=== PATIENT | male | born 1975 | race Caucasian/White ===

== ENCOUNTER 2020-11-30 20:23 | Emergency (ER) | payer OTHER, SELFPAY ==
[2020-11-30 20:24] VITALS: BP 129/78; PULSE 85; RESP 16; TEMP 36.9; O2SAT 98; BMI 22.6
--- NOTE | 2020-11-30 20:59 | ECG_ITS ---
APPROVED REPORT Exam: Resting ECG HR:82 bpm ECG Measurements Heart Rate 82 AXES NJ 172 P 37 QRSd 100 QRS 26 QT 360 T 31 QTc 420 Conclusion Normal sinus rhythm Normal ECG Electronically signed by : Osmar Escoto, 12/01/2020 07:37:31
[2020-11-30 21:00] VITALS: BP 137/70; PULSE 86; RESP 15; O2SAT 97
[2020-11-30 21:04] LABS: Basophils % 0.4 % (0.1-2.0); Eosinophils % 0.4 % (0.1-12.0); Hematocrit 45.7 % (42.0-52.0); Hemoglobin 15.4 g/dL (14.1-18.0); Lymphocytes # 1.5 K/mm3 (0.7-4.5); Lymphocytes % 20.3 % (10-50); Mean Corpuscular HGB Conc 33.8 g/dL (31.8-35.4); Mean Corpuscular Hemoglobin 27.2 pg (27.0-31.2); Mean Corpuscular Volume 80.5 fl (80-94); Mean Platelet Volume 8.5 fl (7.4-10.4); Monocytes # 0.5 K/mm3 (0.1-1.0); Monocytes % 6.6 % (1.7-9.3); Neutrophils # 5.2 K/mm3 (1.8-7.8); Neutrophils % 72.3 % (37.0-80.0); Platelet Count 239 K/mm3 (142-424); Red Blood Count 5.67 M/mm3 (4.60-6.20); Red Cell Distribution Width 13.2 % (11.5-17.5); White Blood Count 7.2 K/mm3 (4.8-10.8)
--- NOTE | 2020-11-30 21:06 | XR_ITS ---
PROCEDURE: XR CHEST 2V CLINICAL HISTORY: Palpitations COMPARISON: No exams were available for comparison FINDINGS: The cardiomediastinal silhouette and pulmonary vascularity are within normal limits. The lungs are clear without infiltrates, suspicious nodules, or pleural effusions. No acute bony abnormalities. IMPRESSION: No acute findings. Dictated by: Dr. Huang Tolbert MD 12/01/2020 08:10 Dr. Huang Tolbert MD in [place] 12/01/2020 08:10
[2020-11-30 21:11] LABS: Alanine Aminotransferase 17 U/L (12-78); Albumin Level 4.5 g/dl (3.5-5.0); Albumin/Globulin Ratio 1.4 (1.1-1.8); Alkaline Phosphatase 88 U/L (38-126); Amylase 40 U/L (30-110); Aspartate Amino Transferase 18 U/L (17-59); Bilirubin,Total 0.8 mg/dl (0.2-1.3); Blood Urea Nitrogen 10 mg/dl (9-20); Calcium 9.2 mg/dl (8.4-10.2); Carbon Dioxide 32 mmol/L (22.0-30.0); Chloride 97 mmol/L (98-107); Creatinine Clearance Estimated 121 mL/min (50-200); Estimated Glomerular Filt Rate 123 ml/min (>60); GFR (African American) 148 ML/MIN (>60); Globulin 3.2 g/dL (1.3-3.2); Glucose 326 mg/dl (74-100); Lipase 95 U/L (23-300); Sodium 135 mmol/L (136-145); Total Protein,Serum 7.7 g/dl (6.3-8.2)
[2020-11-30 21:16] LABS: C-Reactive Protein 2.1 mg/L (0-4)
--- NOTE | 2020-11-30 21:22 | [facility].EDNVD ---
ED Disposition Clinical Impression: Dental caries extending into dentin Diabetes mellitus Qualifiers: Diabetes mellitus type: type 2 Diabetes mellitus senior living insulin use: unspecified senior living insulin use status Diabetes mellitus complication status: with other specified complication Qualified Code(s): E11.69 - Type 2 diabetes mellitus with other specified complication Disposition: Home, Self-Care Condition on Discharge: Good Instructions: DI for Diabetes Type 1 -- Adult Additional Instructions: see pcp for follow up Prescriptions: clindamycin HCL [Clindamycin HCl] 300 mg PO TID #30 cap Transmission Status: Pending to [id number] Metformin HCl [Metformin HCl ER] 500 mg PO BID #[id number] [id number] Referrals: PCP,No [Primary Care Provider] - - Critical Care Critical Care Time: No Attestation: On 11/30/20, the high probability of a clinically significant, sudden or life threatening deterioration of the following system(s) required my full and direct attention, intervention and personal management. The time I documented below is in addition to time spent performing reported procedures but includes the following listed in this critical care notation. Medical Decision Making - Medical Records Medical records reviewed: Yes: I reviewed the patient's medical records. - Joseph Inquiry Pt receiving controlled substance: No Vital Signs: 11/30/20 20:24 11/30/20 21:00 11/30/20 21:30 Temperature 98.5 F Temperature Source Oral Pulse Rate [Right Radial] 85 86 74 Respiratory Rate 16 15 17 Blood Pressure [Right Arm] 129/78 137/70 125/70 Blood Pressure Mean [Right Arm] 95 92 88 Blood Pressure Source [Right Arm] Automatic Cuff Automatic Cuff Automatic Cuff Blood Pressure Position [Right Arm] Supine Supine Supine 02 Sat by Pulse Oximetry 98 97 97 Oxygen Delivery Method Room Air Room Air Room Air 11/30/20 22:30 11/30/20 23:00 Temperature Temperature Source Pulse Rate [Right Radial] 71 81 Respiratory Rate 17 17 Blood Pressure [Right Arm] 169/84 H 144/90 H Blood Pressure Mean [Right Arm] 112 108 Blood Pressure Source [Right Arm] Automatic Cuff Automatic Cuff Blood Pressure Position [Right Arm] Supine Supine 02 Sat by Pulse Oximetry 99 95 Oxygen Delivery Method Room Air Room Air - Lab Data Lab results reviewed: Yes: I reviewed the patient's lab results. Lab Results 11/30/20 20:55: WBC 7.2, RBC 5.67, Hgb 15.4, Hct 45.7, MCV 80.5, MCH 27.2, MCHC 33.8, RDW 13.2, Plt Count 239, MPV 8.5, Neut % (Auto) 72.3, Lymph % (Auto) 20.3, [place] % (Auto) 6.6, Eos % (Auto) 0.4, Baso % (Auto) 0.4, Neut # (Auto) 5.2, Lymph # (Auto) 1.5, [place] # (Auto) 0.5, Eos # (Auto) 0.0, Baso # (Auto) 0.0, ESR 1 11/30/20 20:55: Sodium 135 L, Potassium 4.0, Chloride 97 L, Carbon Dioxide 32 H, Anion Gap 10.0, BUN 10, Creatinine 0.70, Estimated Creat Clear 121, Estimated GFR 123, Est GFR ( Amer) 148, Glucose 326 H, Calcium 9.2, Total Bilirubin 0.8, AST 18, ALT 17, Alkaline Phosphatase 88, C-Reactive Protein 2.1, Total Protein 7.7, Albumin 4.5, Globulin 3.2, Albumin/Globulin Ratio 1.4, Amylase 40, Lipase 95 11/30/20 20:55: Hemoglobin A1c 10.6 H 11/30/20 20:55: Troponin I < 0.01, TSH 2.44, Thyroxine (T4) 15.6 H 11/30/20 20:55: Acetone Level None detected 11/30/20 21:56: Urine Color Yellow, Urine Appearance Clear, Urine pH 6.0, Ur Specific [place] 1.025, Urine Protein Negative, Urine Glucose (UA) 2+, Urine Ketones 1+, Urine Blood Negative, Urine Nitrate Negative, Urine Bilirubin Negative, Urine Urobilinogen 0.2, Ur Leukocyte Esterase Negative, Urine RBC 5-10, Urine WBC None, Ur Squamous Epith Cells None, Urine Bacteria None Result diagrams: 11/30/20 20:55 11/30/20 20:55 Orders (Tests/Meds): ED MEDICATIONS Generic Name Dose Route Start Last Admin Trade Name Freq PRN Reason Stop Dose Admin Sodium Chloride 1,000 mls @ 999 mls/hr 11/30/20 21:45 11/30/20 21:50 Sod Chlor 0.9%
[2020-11-30 21:30] VITALS: BP 125/70; PULSE 74; RESP 17; O2SAT 97
[2020-11-30 21:39] LABS: T4 (Thyroxine) 15.6 ug/dl (5.53-11.0)
[2020-11-30 21:44] LABS: Erythrocyte Sedimentation Rate 1 mm/hr (0-15)
--- NOTE | 2020-11-30 21:45 | CT_ITS ---
PROCEDURE: CT ABDOMEN PELVIS W CON CLINICAL INDICATION: indigestion COMPARISON: No exams were available for comparison TECHNIQUE: IV Contrast: 75ML OPTIRAY 350 Oral Contrast 20ml Gastroview Axial images obtained with sagittal and coronal reformats. All CT scans at the facility use one or more dose reduction, viz: automated exposure control, ma/kV adjustment per patient size (including targeted exams where dose is matched to indication, i.e. head), or iterative reconstruction technique. FINDINGS: Lower thorax: Minimal right basilar atelectasis ABDOMEN: Liver: No masses or biliary dilatation. Gallbladder: Partial contraction of the gallbladder, no definite gallstones seen Pancreas: No masses or peripancreatic fluid collections. Spleen: unremarkable Adrenals: unremarkable Kidneys/ureters: The kidneys are normal in size and show symmetrical function both appearing normal. ABDOMEN & PELVIS: Stomach bowel: There is a small hiatal hernia. The stomach and duodenal sweep appear normal. The small bowel is unremarkable. The appendix is normal in caliber and partially air-filled. There is moderate scattered stool and gas seen throughout the colon. There are scattered diverticuli of the sigmoid colon and there is mild focal bowel wall thickening and pericolonic haziness of the mid sigmoid colon and a focal area of diverticulitis cannot be excluded. Peritoneum: No abnormal fluid collections. No obvious inflammatory changes. No free air. Lymph nodes: No enlarged lymph nodes apparent. Vasculature: No evidence of abdominal aortic aneurysm. No retroperitoneal hemorrhage evident. Bones: There is moderate diffuse levo scoliotic curvature of the thoracolumbar junction. PELVIS: Reproductive: unremarkable Bladder: Nondistended. No obvious stones or masses. The prostate is upper limits of normal in size. Appendix: Unremarkable. No distention or periappendiceal phlegmonous change. IMPRESSION: Mild diverticulosis sigmoid colon with possible early focal area of diverticulitis mid sigmoid colon Dictated by: Dr. Huang Tolbert MD 12/01/2020 08:22 Dr. Huang Tolbert MD in [facility] 12/01/2020 08:22
[2020-11-30 21:46] LABS: Hemoglobin A1C 10.6 % (4.0-6.0); Troponin I < 0.01 ng/ml (0.00-0.034)
[2020-11-30 21:52] LABS: Thyroid Stimulating Hormone 2.44 uIU/mL (0.465-4.68)
[2020-11-30 21:58] LABS: Microscopic, Urine URINE MICROSCOPIC (MICROSCOPIC)
[2020-11-30 22:00] LABS: Appearance,Urine CLEAR (Clear); Bilirubin,Urine Negative (Negative); Blood, Urine Negative (Negative); Color,Urine YELLOW (Yellow); Glucose,Urine (UA) 2+ (Negative); Ketones,Urine 1+ (Negative); Leukocyte Esterase,Urine Negative (Negative); Nitrate,Urine Negative (Negative); Protein,Urine Negative (Negative); Specific Gravity, Urine 1.025 (1.005-1.030); Urobilinogen,Urine 0.2 EU/dl (0.2)
[2020-11-30 22:11] LABS: Acetone, Serum (Rapid) None Detected (None Detect)
[2020-11-30 22:30] VITALS: BP 169/84; PULSE 71; RESP 17; O2SAT 99
[2020-11-30 23:00] VITALS: BP 144/90; PULSE 81; RESP 17; O2SAT 95
[2020-12-01 00:18] VITALS: BP 129/75; PULSE 81; RESP 16; TEMP 37.1; O2SAT 98
== END 2020-12-01 00:21 | disposition home or self-care (01) ==
PROVIDERS: Emergency Provider Emergency Medicine
DX: K02.9 Dental caries, unspecified (principal); E11.65 Type 2 diabetes mellitus with hyperglycemia
CPT/HCPCS: 71046; 74177; 80053; 81001; 82009; 82150; 83036; 83690; 84436; 84443; 84484; 85025; 85651; 86140; 87040; 87077; 87186; 93005; 96365; 96375; 99284; Q9967; U0003